=== PATIENT | male | born 1980 | race Two or more races ===

== ENCOUNTER 2022-12-26 15:37 | Emergency (ER) | payer OTHER ==
[~2022-12-26] VITALS: Ht 165.1 cm; Wt 81.8 kg
[2022-12-26 15:53] VITALS: BP 136/78
[2022-12-26] MEDS ORDERED: KETOROLAC TROMETHAMINE 60 MG/2 ML VIAL IM ONE (16:15)
[2022-12-26] MEDS ORDERED: CYCLOBENZAPRINE HCL 10 MG TABLET PO ONE (16:15)
[2022-12-26] MEDS ORDERED: IBUP-1492 PO (17:10)
[2022-12-26] MEDS ORDERED: CYCL-448 PO (17:10)
== END 2022-12-26 17:32 | disposition home or self-care (01) ==
LOC: EMS 15:41
DX: M54.50 Low back pain, unspecified (principal); M54.2 Cervicalgia; M25.512 Pain in left shoulder; V89.2XXA Person injured in unspecified motor-vehicle accident, traffic, initial encounter; Y93.89 Activity, other specified; Y92.89 Other specified places as the place of occurrence of the external cause; Y99.8 Other external cause status
CPT/HCPCS: 99283; 96372; J1885